=== PATIENT | male | born 1960 | race Two or more races ===

== ENCOUNTER 2021-06-04 21:34 | Emergency (ER) | payer OTHER ==
--- NOTE | 2021-06-04 22:20 | NUR ---
PT REFUSED TREATMENT WHILE STILL ON EMS GURNEY WHEN PROVIDER SPOKE WITH HIM. PT LEFT AMA, [facility] RESPONDED, IN AMBULANCE BAY, DETERMINED THAT PT WAS SAFE TO WALK AWAY FROM ER, NOT TO [facility].
== END 2021-06-04 22:26 | disposition left against medical advice (07) ==
LOC: ER 21:36
DX: S09.90XA Unspecified injury of head, initial encounter (principal); W19.XXXA Unspecified fall, initial encounter; Y93.89 Activity, other specified; Y92.89 Other specified places as the place of occurrence of the external cause; Y99.8 Other external cause status
CPT/HCPCS: 99283

== ENCOUNTER 2025-01-20 09:33 | Outpatient (CLI) | payer MEDICARE ==
--- NOTE | 2025-01-20 13:05 | VASCULAR REPORT ---
INDICATION: smoking history TECHNIQUE: Multiple sonographic images of the abdominal aorta were obtained. COMPARISON: None FINDINGS: The aorta measures 2 cm. There is no evidence for atherosclerotic disease. There is no per iaortic fluid. IMPRESSION: 1. No evidence for abdominal aortic aneurysm.
== END 2025-01-20 23:59 | disposition home or self-care (01) ==
LOC: VAS 09:33
PROVIDERS: ATTEND Family Medicine
DX: Z13.6 Encounter for screening for cardiovascular disorders (principal); Z87.891 Personal history of nicotine dependence
CPT/HCPCS: 93978